=== PATIENT | female | born 1995 | race Two or more races ===

== ENCOUNTER 2020-06-05 11:41 | Outpatient (REF) | payer OTHER, SELFPAY ==
[2020-06-05 13:56] LABS: MANUAL DIFF FLAG NO
[2020-06-05 14:15] LABS: Basophils Absolute Auto 0.1 X10*3/uL (0.0-0.2); Basophils Percent Auto 0.7 % (0-2); Eosinophils Absolute Auto 0.2 X10*3/uL (0.0-0.4); Eosinophils Percent Auto 1.7 % (0-4); Hemoglobin 13.4 g/dl (12.0-16.0); Imm Gran Abs Auto 0.04 X10*3/uL (0.00-0.03); Imm Gran Pct Auto 0.3 % (0.0-0.4); Lymphocytes Percent Auto 35.1 % (20-40); Mean Corpuscular HGB Conc 32.7 g/dl (31.0-35.0); Mean Corpuscular Hemoglobin 28.2 pg (27.0-33.0); Mean Corpuscular Volume 86.3 fL (80-98); Mean Platelet Volume 12.5 fL (9.4-12.3); Monocytes Percent Auto 8.7 % (2-11); Neutrophils Absolute Auto 6.1 X10*3/uL (2.0-8.3); Neutrophils Percent Auto 53.5 % (45-73); Platelet Count 294 X10*3/uL (160-400); Red Blood Count 4.75 X10*6/uL (4.20-5.50); Red Cell Distribution Width 13.9 % (11.0-16.0); White Blood Count 11.4 X10*3/uL (4.8-10.8)
[2020-06-05 14:53] LABS: Cholesterol 146 mg/dL; Glucose Fasting 76 mg/dL (60-99); HDL Cholesterol 56 mg/dL; LDL Cholesterol Calculated 73 mg/dl; Triglycerides 88 mg/dL
== END 2020-06-05 11:42 | disposition home or self-care (01) ==
LOC: HO.HMGCLDS 11:41
PROVIDERS: PCP Internal Medicine; Visit Provider Internal Medicine
DX: Z00.01 Encounter for general adult medical examination with abnormal findings (principal); E66.9 Obesity, unspecified
CPT/HCPCS: 36415; 80061; 82947; 85025

== ENCOUNTER 2020-06-07 14:21 | Outpatient (REF) | payer OTHER, SELFPAY ==
[2020-06-08 11:42] LABS: C. trachomatis RNA TMA NOT DETECTED (NOT DETECTED); N. gonorrhoeae RNA TMA NOT DETECTED (NOT DETECTED)
== END 2020-06-07 14:22 | disposition home or self-care (01) ==
LOC: HO.LAB 14:21
PROVIDERS: PCP Internal Medicine; Visit Provider Advanced Practice Midwife
DX: Z01.419 Encounter for gynecological examination (general) (routine) without abnormal findings (principal); E66.9 Obesity, unspecified; Z68.33 Body mass index [BMI] 33.0-33.9, adult
CPT/HCPCS: 36415; 87491; 87591

== ENCOUNTER → 2021-01-17 09:15 | Outpatient (BNVA) | payer OTHER, SELFPAY | PROVIDERS: Visit Provider Advanced Practice Midwife | DX: Z32.01 Encounter for pregnancy test, result positive (principal); N92.6 Irregular menstruation, unspecified | CPT/HCPCS: 81025; 99212 ==

== ENCOUNTER 2021-01-21 10:29 | Outpatient (REF) | payer OTHER, SELFPAY ==
--- NOTE | ~2021-01-21 | US_ITS ---
EXAMINATION: US OBSTETRICAL ULTRASOUND CLINICAL INFORMATION: Irregular menstruation. Size and dates. LMP 11/16/2020. COMPARISON: None LMP: 11/16/2020. Gestational age by maternal dates is 9 weeks 3 days. Estimated date of delivery by maternal dates is 08/23/2021. TECHNIQUE: Ultrasound of the maternal pelvis is performed using transabdominal transducer. M-mode Doppler is also performed. FINDINGS: There is a single intrauterine gestational sac with visible embryo/fetus and cardiac activity. There is no significant subchorionic hemorrhage or hematoma. HR: 172 beats per minute. CRL (crown-rump length): 2.77 cm (9 weeks 5 days +/- 4 days). RAUL (estimated date of delivery): 08/21/2021 +/- 4 days. MATERNAL ADNEXA: The right maternal ovary measures 2.7 x 1.7 x 2.5 cm. Right adnexal cyst measuring 2.5 x 1.7 x 1.6 cm. The left maternal ovary measures 2.7 x 1.3 x 1.8 cm. There is no significant maternal adnexal mass. No maternal pelvic ascites. US/US OB <= 14 weeks fetus IMPRESSION: 1. Single intrauterine gestation with ultrasound gestational age of 9 weeks 5 days +/- 4 days. 2. Estimated date of delivery is 08/21/2021 +/- 4 days. 3. Simple right adnexal cyst measuring 2.5 cm.
== END 2021-01-21 10:30 | disposition home or self-care (01) ==
LOC: HO.HMGCX 10:29
PROVIDERS: PCP Internal Medicine; Visit Provider Advanced Practice Midwife
DX: N92.6 Irregular menstruation, unspecified (principal)
CPT/HCPCS: 76801

== ENCOUNTER → 2021-01-24 10:00 | Outpatient (BNVA) | payer OTHER, SELFPAY | PROVIDERS: PCP Internal Medicine; Visit Provider Advanced Practice Midwife | DX: Z34.01 Encounter for supervision of normal first pregnancy, first trimester (principal); Z3A.10 10 weeks gestation of pregnancy | CPT/HCPCS: 99212 ==

== ENCOUNTER 2021-02-06 08:11 | Outpatient (REF) | payer OTHER, SELFPAY ==
[2021-02-06 08:56] LABS: Hematocrit 37.9 % (37-47); Hemoglobin 12.6 g/dl (12.0-16.0); Mean Corpuscular HGB Conc 33.2 g/dl (31.0-35.0); Mean Corpuscular Hemoglobin 29.2 pg (27.0-33.0); Mean Corpuscular Volume 87.7 fL (80-98); Platelet Count 227 X10*3/uL (160-400); Red Blood Count 4.32 X10*6/uL (4.20-5.50); Red Cell Distribution Width 13.4 % (11.0-16.0); White Blood Count 13.1 X10*3/uL (4.8-10.8)
[2021-02-06 10:02] LABS: HBsAGNum1 0.18 S/CO (0.00-0.99); Hepatitis B Surface Antigen Negative (Negative)
[2021-02-06 10:33] LABS: HIV AB/AG Nonreactive (Nonreactive); HIV Num 1 0.14 S/CO (0.00-0.99); ~Hepatitis C Antibody Nonreactive (Nonreactive)
[2021-02-06 10:51] LABS: Glucose 1 Hour PP 50gm Dose 111 mg/dL (60-140)
[2021-02-07 03:28] LABS: Syphilis Screen Nonreactive (Nonreactive)
[2021-02-07 13:05] LABS: Rubella IgG Antibody 8.43 Index
== END 2021-02-06 08:12 | disposition home or self-care (01) ==
LOC: HO.LAB 08:11
PROVIDERS: PCP Internal Medicine; Visit Provider Advanced Practice Midwife
DX: Z34.90 Encounter for supervision of normal pregnancy, unspecified, unspecified trimester (principal)
CPT/HCPCS: 85027; 86762; 86780; 86787; 86803; 86850; 86900; 86901; 87340; 87389

== ENCOUNTER 2021-02-07 14:25 | Outpatient (REF) | payer OTHER, SELFPAY ==
--- NOTE | ~2021-02-07 | US_ITS ---
EXAMINATION: OBSTETRICAL ULTRASOUND, FIRST TRIMESTER HISTORY: A 34-year-old at the 12.1 weeks of gestation NT screening COMPARISON: 01/21/2021 TECHNIQUE: Real time transabdominal imaging with color and M-mode Doppler. FINDINGS: A single, live IUP CRL of 57.2 mm c/w 12.2wks is noted. Heart Rate: 160 beats per minute. Normal yolk sac seen. NT was 1.2.mm. NB Present The embryo appears sonographically wnl for this GA. Both maternal ovaries are seen and appear normal. GESTATIONAL AGE: 1. Established GA: 12.1 wks 2. GA from [facility]: 12.2 wks ESTIMATED DATE OF DELIVERY: 1. Established RAUL: 08/21/2021 2. RAUL from [facility]: 08/20/2021 US/US OB 1T nuc measure IMPRESSION: 1. A single live IUP 2. Size equals dates 3. NT of 1.2 mm MFM Consultation: I reviewed the ultrasound findings along with significance of NT measurement. The NT of less than 3mm is generally reassuring. However, the sensitivity for T21 detection is only 60%. I reviewed the availability of serum aneuploidy screening which includes cell-free DNA and placental protein based tests. I discussed the sensitivity, false-positive rate, and other limitations associated with each test. I also reviewed the availability of invasive diagnostic tests that are associated small but definite risk of miscarriage. We also reviewed the differences between screening tests and diagnostic tests. After our discussion, she opted for the First trimester screening that is based on cell-free DNA or non-invasive testing (NIPT). The result will be faxed to your office in approximately 7 days. A follow up at 18 weeks for survey has been scheduled. Thank you very much for this referral. Total time 30 minutes. The time spent was devoted to counseling the patient about the disease and diagnosis, coordinating care including reviewing her records, pertinent lab data and studies, as well as discussing diagnostic evaluation and workup, plan therapeutic interventions and future disposition of care. This includes any additional research needed to obtain further information in formulating the plan of care of this patient. This note was generated with a voice recognition program. Please excuse any errors which may have been overlooked during my review of this note. Sometimes these errors may affect the content or meaning of a given sentence.
[2021-02-07 15:47] LABS: Amphetamine Screen Urine Not Detected (Not Detect); Barbiturates, Urine Not Detected (Not Detect); Benzodiazepines Screen Urine Not Detected (Not Detect); Cannabinoid Screen Urine Not Detected (Not Detect); Cocaine Screen Urine Not Detected (Not Detect); Fentanyl, urine Not Detected (Not Detect); Opiate Screen Urine Not Detected (Not Detect); Phencyclidine Screen Urine Not Detected (Not Detect)
[2021-02-08 10:35] LABS: CT PCR NOT DETECTED (Not Detect.); NG PCR NOT DETECTED (Not Detect.)
== END 2021-02-07 14:26 | disposition home or self-care (01) ==
LOC: HO.US 14:25
PROVIDERS: PCP Internal Medicine; Visit Provider Advanced Practice Midwife
DX: Z34.91 Encounter for supervision of normal pregnancy, unspecified, first trimester (principal); Z11.3 Encounter for screening for infections with a predominantly sexual mode of transmission
CPT/HCPCS: 76813; 80307; 87086; 87147; 87491; 87591

== ENCOUNTER 2021-02-19 10:33 | Outpatient (REF) | payer OTHER, SELFPAY ==
[2021-02-19 14:15] LABS: CT PCR NOT DETECTED (Not Detect.); NG PCR NOT DETECTED (Not Detect.)
[2021-02-20 09:06] LABS: BV Int Neg Control Negative (Negative); BV Int Pos Control Positive (Positive)
== END 2021-02-19 10:34 | disposition home or self-care (01) ==
LOC: HO.LAB 10:33
PROVIDERS: PCP Internal Medicine; Visit Provider Advanced Practice Midwife
DX: O35.9XX0 Maternal care for (suspected) fetal abnormality and damage, unspecified, not applicable or unspecified (principal); O26.891 Other specified pregnancy related conditions, first trimester; N89.8 Other specified noninflammatory disorders of vagina; Z3A.13 13 weeks gestation of pregnancy
CPT/HCPCS: 81003; 87480; 87491; 87510; 87591; 87660; 99212

== ENCOUNTER → 2021-03-19 10:34 | Outpatient (BNVA) | payer OTHER, SELFPAY | PROVIDERS: PCP Internal Medicine; Visit Provider Advanced Practice Midwife | DX: Z34.02 Encounter for supervision of normal first pregnancy, second trimester (principal); Z3A.17 17 weeks gestation of pregnancy | CPT/HCPCS: 90686; 99212 ==

== ENCOUNTER 2021-04-04 10:50 | Outpatient (REF) | payer OTHER, SELFPAY ==
--- NOTE | ~2021-04-04 | US_ITS ---
EXAMINATION: US OBSTETRICAL CLINICAL INFORMATION: 26-year-old at 19.6 weeks of gestation High BMI Screening for anomaly COMPARISON: 02/07/2021 TECHNIQUE: Real-time transabdominal ultrasound was performed using C1-5 megahertz transducer. Transvaginal ultrasound was performed using an endovaginal probe to better visualize the cervical length. FINDINGS: A single, active, fetus is seen in breech presentation. The placenta is anterior without previa, and the amniotic fluid volume is wnl. MEASUREMENTS: 1. Biparietal Diameter: 4.6 cm; 19.5 wks 2. Occipital Frontal Diameter: 6.4 cm 3. Head Circumference: 17.9 cm; 20.3 wks 4. Abdominal Circumference: 15.9 cm; 21.1 wks 5. Femur Length: 3.4 cm; 20.5 wks 6. Humerus Length: 3.17 cm; 20.5 wks 7. Tibia Length: 2.84 cm; 20.3 wks 8. Ulna Length: 2.75 cm; 20.1 wks 9. Lateral ventricle: 0.48 cm 10. Cerebellum: 2.1 cm; 21.0 wks 11. Cisterna Magna: 0.62 cm 12. Nuchal Fold: 3.8 mm 13. Heart Rate: 146 beats per minute Rt ovary: normal Lt ovary: normal Cervical length 3.5 cm on T/V. GESTATIONAL AGE: 1. Established GA: 19.6 wks 2. GA [facility]: 20.4 wks ESTIMATED DATE OF DELIVERY: 1. Established RAUL: 08/23/2021 2. [facility]UL [facility]: 08/18/2021 ANATOMY: The visualized anatomy includes but not limited to: 1. Cranium: Normal 2. Intracranial anatomy: cavum septum pellucidi, lateral ventricles, choroid plexus, cerebellum, posterior fossa, third and fourth ventricles. 3. face: orbits, lip/palate, profile, nasal bone 4. Heart: four-chamber view of the heart, ventricular septum, foramen ovale, pulmonary vein, left and right outflow tracts, three-vessel view, 3 vessel trachea view, aortic and ductal arches, situs.. 5. Diaphragm: Normal 6. Abdominal wall: Normal 7. Cord Insertion: Normal 8. Spine: Cervical, thoracic, lumbar, sacral. 9. Stomach: Normal size and shape 10. Right Kidney: Normal 11. Left Kidney: Normal 12. 3 vessel cord: Normal 13. Upper extremity: Open hands, fifth digit. 14. Lower extremity: Tibia, fibula, bilateral feet. 15. Bladder: Normal 16. Genitalia: Male, patient aware US/US OB transvaginal IMPRESSION: 1. Single, living, intrauterine with appropriate biometry. 2. Normal survey 3. Normal cervical length DISCUSSION: I reviewed today's ultrasound findings. We discussed the limitations of ultrasound in diagnosing aneuploidy and other congenital abnormalities. I reviewed the differences between screening test and diagnostic test. Amniocentesis was discussed and declined. She was informed that the baseline incidence of congenital abnormalities is approximately 3-5%. Not all these conditions are diagnosable in utero. RECOMMENDATIONS: 1. Follow-up when necessary. Thank you for allowing me to participate in her care. Total time 30 minutes. The time spent was devoted to counseling the patient about the disease and diagnosis, coordinating care including reviewing her records, pertinent lab data and studies, as well as discussing diagnostic evaluation and workup, plan therapeutic interventions and future disposition of care. This includes any additional research needed to obtain further information in formulating the plan of care of this patient. This note was generated with a voice recognition program. Please excuse any errors which may have been overlooked during my review of this note. Sometimes these errors may affect the content or meaning of a given sentence.
--- NOTE | ~2021-04-04 | US_ITS ---
EXAMINATION: US OBSTETRICAL CLINICAL INFORMATION: 26-year-old at 19.6 weeks of gestation High BMI Screening for anomaly COMPARISON: 02/07/2021 TECHNIQUE: Real-time transabdominal ultrasound was performed using C1-5 megahertz transducer. Transvaginal ultrasound was performed using an endovaginal probe to better visualize the cervical length. FINDINGS: A single, active, fetus is seen in breech presentation. The placenta is anterior without previa, and the amniotic fluid volume is wnl. MEASUREMENTS: 1. Biparietal Diameter: 4.6 cm; 19.5 wks 2. Occipital Frontal Diameter: 6.4 cm 3. Head Circumference: 17.9 cm; 20.3 wks 4. Abdominal Circumference: 15.9 cm; 21.1 wks 5. Femur Length: 3.4 cm; 20.5 wks 6. Humerus Length: 3.17 cm; 20.5 wks 7. Tibia Length: 2.84 cm; 20.3 wks 8. Ulna Length: 2.75 cm; 20.1 wks 9. Lateral ventricle: 0.48 cm 10. Cerebellum: 2.1 cm; 21.0 wks 11. Cisterna Magna: 0.62 cm 12. Nuchal Fold: 3.8 mm 13. Heart Rate: 146 beats per minute Rt ovary: normal Lt ovary: normal Cervical length 3.5 cm on T/V. GESTATIONAL AGE: 1. Established GA: 19.6 wks 2. GA from [facility]: 20.4 wks ESTIMATED DATE OF DELIVERY: 1. Established RAUL: 08/23/2021 2. RAUL from [facility]: 08/18/2021 ANATOMY: The visualized anatomy includes but not limited to: 1. Cranium: Normal 2. Intracranial anatomy: cavum septum pellucidi, lateral ventricles, choroid plexus, cerebellum, posterior fossa, third and fourth ventricles. 3. face: orbits, lip/palate, profile, nasal bone 4. Heart: four-chamber view of the heart, ventricular septum, foramen ovale, pulmonary vein, left and right outflow tracts, three-vessel view, 3 vessel trachea view, aortic and ductal arches, situs.. 5. Diaphragm: Normal 6. Abdominal wall: Normal 7. Cord Insertion: Normal 8. Spine: Cervical, thoracic, lumbar, sacral. 9. Stomach: Normal size and shape 10. Right Kidney: Normal 11. Left Kidney: Normal 12. 3 vessel cord: Normal 13. Upper extremity: Open hands, fifth digit. 14. Lower extremity: Tibia, fibula, bilateral feet. 15. Bladder: Normal 16. Genitalia: Male, patient aware US/US OB /maternal detail IMPRESSION: 1. Single, living, intrauterine with appropriate biometry. 2. Normal survey 3. Normal cervical length DISCUSSION: I reviewed today's ultrasound findings. We discussed the limitations of ultrasound in diagnosing aneuploidy and other congenital abnormalities. I reviewed the differences between screening test and diagnostic test. Amniocentesis was discussed and declined. She was informed that the baseline incidence of congenital abnormalities is approximately 3-5%. Not all these conditions are diagnosable in utero. RECOMMENDATIONS: 1. Follow-up when necessary. Thank you for allowing me to participate in her care. Total time 30 minutes. The time spent was devoted to counseling the patient about the disease and diagnosis, coordinating care including reviewing her records, pertinent lab data and studies, as well as discussing diagnostic evaluation and workup, plan therapeutic interventions and future disposition of care. This includes any additional research needed to obtain further information in formulating the plan of care of this patient. This note was generated with a voice recognition program. Please excuse any errors which may have been overlooked during my review of this note. Sometimes these errors may affect the content or meaning of a given sentence.
== END 2021-04-04 10:51 | disposition home or self-care (01) ==
LOC: HO.US 10:50
PROVIDERS: PCP Internal Medicine; Visit Provider Advanced Practice Midwife
DX: O35.9XX0 Maternal care for (suspected) fetal abnormality and damage, unspecified, not applicable or unspecified (principal); Z3A.00 Weeks of gestation of pregnancy not specified
CPT/HCPCS: 76811; 76817

== ENCOUNTER 2021-04-11 10:30 | Outpatient (REF) | payer OTHER, SELFPAY ==
[2021-04-12 13:22] LABS: Rubella IgG Antibody 6.51 Index
[2021-04-14 08:35] LABS: HBsAGNum1 0.24 S/CO (0.00-0.99); Hepatitis B Surface Antigen Negative (Negative)
[2021-04-14 09:43] LABS: TS Negative Control Passed; TS Panel A 0; TS Panel B 0; TS Positive Control Passed; TSpotTB Negative (Negative)
== END 2021-04-11 10:31 | disposition home or self-care (01) ==
LOC: HO.HMGCLDS 10:30
PROVIDERS: PCP Internal Medicine; Visit Provider Internal Medicine
DX: Z02.1 Encounter for pre-employment examination (principal)
CPT/HCPCS: 36415; 86481; 86735; 86762; 86765; 86787; 87340

== ENCOUNTER → 2021-04-17 10:21 | Outpatient (BNVA) | payer OTHER, SELFPAY | PROVIDERS: PCP Internal Medicine; Visit Provider Advanced Practice Midwife | DX: Z34.02 Encounter for supervision of normal first pregnancy, second trimester (principal); Z3A.22 22 weeks gestation of pregnancy | CPT/HCPCS: 81003; 99212 ==

== ENCOUNTER → 2021-05-16 09:32 | Outpatient (BNVA) | payer OTHER, SELFPAY | PROVIDERS: PCP Internal Medicine; Visit Provider Advanced Practice Midwife | DX: O99.820 Streptococcus B carrier state complicating pregnancy (principal); Z3A.26 26 weeks gestation of pregnancy | CPT/HCPCS: 81003; 99212 ==

== ENCOUNTER 2021-06-03 09:02 | Outpatient (REF) | payer OTHER, SELFPAY ==
[2021-06-03 12:08] LABS: Hematocrit 34.5 % (37.0-47.0); Hemoglobin 11.3 g/dl (12.0-16.0); Mean Corpuscular HGB Conc 32.8 g/dl (31.0-35.0); Mean Corpuscular Hemoglobin 29.3 pg (27.0-33.0); Mean Corpuscular Volume 89.4 fL (80.0-98.0); Mean Platelet Volume 11.7 fL (9.4-12.3); Platelet Count 244 X10*3/uL (160-400); Red Blood Count 3.86 X10*6/uL (4.20-5.50); Red Cell Distribution Width 13.2 % (11.0-16.0); White Blood Count 12.6 X10*3/uL (4.8-10.8)
[2021-06-03 12:29] LABS: Glucose 1 Hour PP 50gm Dose 157 mg/dL (60-140)
[2021-06-04 03:46] LABS: Syphilis Screen Nonreactive (Nonreactive)
== END 2021-06-03 09:03 | disposition home or self-care (01) ==
LOC: HO.LAB 09:02
PROVIDERS: PCP Internal Medicine; Visit Provider Obstetrics & Gynecology
DX: Z34.93 Encounter for supervision of normal pregnancy, unspecified, third trimester (principal); Z23 Encounter for immunization; Z3A.28 28 weeks gestation of pregnancy
CPT/HCPCS: 36415; 85027; 86780; 90471; 99212

== ENCOUNTER 2021-06-07 07:42 | Outpatient (REF) | payer OTHER, SELFPAY ==
[2021-06-07 08:52] LABS: Glucose Fasting 107 mg/dL (60-99)
[2021-06-07 10:26] LABS: Glucose 1 Hour 228 mg/dL
[2021-06-07 12:17] LABS: Glucose 2 Hour 155 mg/dL
[2021-06-07 12:17] LABS: Glucose 3 Hour 123 mg/dL
== END 2021-06-07 07:43 | disposition home or self-care (01) ==
LOC: HO.LAB 07:42
PROVIDERS: PCP Internal Medicine; Visit Provider Obstetrics & Gynecology
DX: O99.810 Abnormal glucose complicating pregnancy (principal); Z3A.00 Weeks of gestation of pregnancy not specified
CPT/HCPCS: 36415; 82951

== ENCOUNTER → 2021-06-18 13:15 | Outpatient (BNVA) | payer OTHER, SELFPAY | PROVIDERS: PCP Internal Medicine; Visit Provider Advanced Practice Midwife | DX: O24.419 Gestational diabetes mellitus in pregnancy, unspecified control (principal); Z3A.30 30 weeks gestation of pregnancy | CPT/HCPCS: 81003; 99212 ==

== ENCOUNTER → 2021-06-19 10:55 | Outpatient (BNVA) | payer OTHER, SELFPAY | PROVIDERS: PCP Internal Medicine; Visit Provider Advanced Practice Midwife ==

== ENCOUNTER → 2021-06-24 09:31 | Outpatient (BNVA) | payer OTHER, SELFPAY | PROVIDERS: PCP Internal Medicine; Visit Provider Obstetrics & Gynecology | DX: O24.410 Gestational diabetes mellitus in pregnancy, diet controlled (principal); Z68.31 Body mass index [BMI] 31.0-31.9, adult | CPT/HCPCS: 59025; 99212 ==

== ENCOUNTER 2023-01-18 08:25 | Outpatient (AMB) | payer OTHER, SELFPAY ==
--- NOTE | 2023-01-18 08:33 | A.OFFPC_ITS ---
Vital Signs 01/18/23 08:43 Height 4 ft 11 in Weight 162 lb BMI 32.7 BP 100/76 Blood Pressure Location Lt brachial Position Sitting Pulse 76 Pulse Source Pulse Oximeter Pulse Oximetry (%) 99 Oxygen Delivery Method Room Air Intake Visit Reasons: Physical exam Intake Note: Pt is here today for her pE Is last menstrual period known: Yes Last menstrual period: 01/18/23 Allergies Sulfa (Sulfonamide Antibiotics) Adverse Reaction (Verified 01/18/23 09:02) Hives Medication List - Last Reconciled 01/19/23 by Vanda Bhardwaj MD ketoconazole 2% 1 appl topical BID 2 weeks norethindrone (contraceptive) 0.35 mg PO DAILY Tobacco use date assessed: 01/18/23 Dental Screening Dental Screen Date: 01/18/23 Did you have a dental visit in the last 12 months?: Yes Did you have a dental problem in the last 6 months where you did not have access to dental care?: No Was dental information given to patient?: Patient has dentist HPI Physical exam HPI Details 27-year-old lady here today for her phys ical exam. She has history of anemia , currently not taking any iron supplements, feels well, with no complaints of any chest pain, shortness of breath, headache or lightheadedness. She has history of gestational diabetes. She goes to [facility] for her routine Pap and pelvic exam, last done 11/30/2022 with normal findings. She is currently taking control pills. Complains of a mildly pruritic rash on left elbow which has been present now for the last 2 weeks has been applying [id number] antifungal cream which has not afforded any resolution of rash. [facility] Medical History (Updated 01/18/23 @ 09:28 by Vanda Bhardwaj MD) Tinea corporis Anemia Suspected anomaly, antepartum Myopia of left eye Obesity (BMI 30.0-34.9) Surgical History No pertinent past surgical history Family History Mother Fibromyalgia Diverticulitis Maternal Grandmother Diabetes mellitus Essential hypertension Social History Household Members: Significant Other Housing: Apartment Are you a primary rn care manager to a significant other at home: No Do you presently have visiting nurse or other home services: No Alcohol intake: never Patient Tobacco Use Status: Never used Tobacco Agree to transfusion: Yes service: No Current occupational status: employed Current occupation: Homecare Current occupational exposures/hazards: No Sexual orientation: Straight/Heterosexual Cognitive needs: No Hearing needs: No Vision needs: No Female Reproductive History Menstrual Age of Menarche: 15 Date of last menstrual period: 01/18/23 control method: pills Questionnaire PHQ-9 Over the last 2 weeks, how often have you been bothered by any of the following problems? 1. Little interest or pleasure in doing things: not at all 2. Feeling down, depressed, or hopeless: not at all 3. Trouble falling or staying asleep, or sleeping too much: not at all 4. Feeling tired or having little energy: not at all 5. Poor appetite or overeating: not at all 6. Feeling bad about yourself - or that you are a failure or have let yourself or your family down: not at all 7. Trouble concentrating on things, such as reading the newspaper or watching television: not at all 8. Moving or speaking so slowly that other people could have noticed. Or the opposite - being so fidgety or restless that you have been moving around a lot more than usual: not at all 9. Thoughts that you would be better off or of hurting yourself in some way: not at all Total score: 0 Depression Screening Interpretation: Negative 81329 - PHQ-9 Billing: Yes Source: Developed by Drs. Lamont Burnett, Ashley Beck, Levy Allen and colleagues, with an educational mora from [email or web address]. Thrive Questionnaire Date Thrive assessed: 01/18/23 I am a: Patient What is your living situation today?: I have a steady place to live Within the past 12 months, did the food you bought not last and you didn't have the money to get more?: Never true Within the past 12 months, did you worry whether your food would run out before you got money to buy more?: Never true Do you have trouble paying for medicines?: No Do you have trouble getting transportation to medical appointments?: No Do you have trouble paying your heating and electricity bill?: No Do you have trouble taking care of your child, family member or friend?: No Do you have trouble with day-to-day activities such as bathing, preparing meals, shopping, managing finances, etc.?: No Are you currently unemployed and looking for a job?: No Are you interested in more education?: No MITCHEL-7 AMB Questionnaire MITCHEL-7 Date MITCHEL - 7 assessed: 01/18/23 Feeling nervous, anxious, or on edge: 0 = Not at all Not being able to stop or control worryin = Not at all Worrying too much about different things: 0 = Not at all Trouble relaxin = Not at all Being so restless that it is hard to sit still: 0 = Not at all Becoming easily annoyed or irritable: 0 = Not at all Feeling afraid as if something awful might happen: 0 = Not at all Total MITCHEL-7 score (0-4 normal; 5-9 mild; 10-14 moderate; 15-21 severe): 0 Source: Developed by Drs. Lamont Burnett, Ashley Beck, Levy Allen and colleagues, with an educational mora from [email or web address]. MITCHEL-7 Assessment Billing MITCHEL-7 Assessment Tool: MITCHEL-7 Assessment 02863 Review of Systems Const Denies body aches, Denies fatigue, Denies fever(s), Denies headache(s) and Adam es weakness Eyes Reports blurry vision (Left eye), Denies change in vision, Denies eye discharge and Denies itchy eyes ENT Denies dizziness, Denies headache(s), Denies nasal congestion, Denies nasal discharge and Denies sore throat Card Denies chest pain, Denies lightheadedness, Denies palpitations and Denies dyspnea Resp Denies chest congestion, Denies cough, Denies dyspnea and Denies wheezing GI Denies abdominal pain, Denies change in bowel habits and Denies heartburn Denies urinary frequency, Denies dysuria and Denies urinary urgency Musc Denies back pain, Denies arthralgias, Denies joint swelling and Denies limited range of motion Skin/Breast Reports as per HPI Neuro Denies dizziness, Denies headache(s) and Denies weakness Psych Denies anxiety and Denies depression Endo Denies fatigue, Denies polydipsia, Denies polyuria and Denies palpitations Herbert/Lymph Denies easy bruising Aller/Immun Denies itchy eyes, Denies seasonal rhinorrhea and Denies wheezing Physical exam (Primary Care) Vital Signs: Last Vital Signs Pulse 76 01/18/23 08:43 BP 100/76 01/18/23 08:43 Pulse Ox 99 01/18/23 08:43 Oxygen Delivery Method Room Air 01/18/23 08:43 BMI result Body Mass Index 32.7 Tobacco/Smoking Status: Tobacco use Status Tobacco use date assessed 01/18/23 01/18/23 08:34 Patient Tobacco Use Status Never used Tobacco 01/18/23 08:34 PHQ-9: PHQ-9 Score PHQ-9: Total score 0 01/18/23 09:28 Depression Screening Interpretation: Negative Thrive Assessment: Date of Thrive Assessment Date Thrive assessed 01/18/23 01/18/23 08:55 Const General: no acute distress and alert Nutritional Appearance: obese Orientation/consciousness: patient oriented x3 HENMT Head: Yes normocephalic and Yes atraumatic Ears: external ears normal, TM's normal bilaterally and EAC's normal General nose exam: Normal external nose present and No nasal discharge present Face and sinus: Yes face symmetric Mouth: Normal oral and palatal mucosa present, oropharynx normal and moist mucous membranes Eyes General: appearance normal, both eyes and all related structures Eyelids: Yes eyelids normal Conjunctivae: conjunctivae normal Sclerae: sclerae normal Pupils: Equal, round and reactive pupils present EOM: EOMs intact bilaterally Neck Neck: Yes full ROM, Yes no lymphadenopathy and Yes supple Thyroid: Thyroid normal Chest Breast/axilla inspection: normal inspection of the breasts Breast/axilla palpation: normal palpation of the breasts Resp Effort & Inspection: normal respiratory effort and able to speak in complete sentences Auscultation: clear to auscultation bilaterally Cardio Rate: regular rate Rhythm: regular rhythm Heart sounds: S1 normal heart sound present and S2 normal heart sound present GI Palpation (GI): Soft to palpation, nontender, no guarding and no masses Auscultation: normal bowel sounds General: Yes no CVA tenderness Back/Spine/Pelvis Back: no CVA tenderness and No back tenderness Skin Other: Erythematous rash with central clearing over lateral aspect left elbow General skin exam: no rashes or lesions noted Neuro General: patient oriented x3, gait normal, moves all extremities, Normal light touch and pain sensation, no focal motor deficits and CN's II-XI intact bilaterally Cranial nerves: Yes Equal, round and reactive pupils present Cognition (Neuro): normal cognition Gait exam (Neuro): Normal gait present Motor exam (neuro): 5/5 motor strength present throughout Extrem General: Yes normal to inspection, Yes full ROM, Yes no joint enlargement, Yes no pedal edema and Yes normal gait Psych Appearance: grossly normal and well kempt Mental Status: mental status grossly normal Speech and movement: Normal speech and movement present Affect: normal affect Attitude: cooperative Thought process: Normal thought process present Thought content: Normal thought content present Insight: Good insight present (Psych) Judgement: Good judgement present (Psych) Assessment and Plan Assessment & Plan (1) Annual visit for general adult medical examination with abnormal findings: Code(s): Z00.01 - Encounter for general adult medical examination with abnormal findings (2) Gestational diabetes mellitus (GDM) affecting , antepartum: Code(s): O24.419 - Gestational diabetes mellitus in , unspecified control (3) Obesity (BMI 30.0-34.9): Code(s): E66.9 - Obesity, unspecified Plan: Recommended focusing on improving your health instead of dieting. : Eat Mediterranean diet, limit foods high in fat, sugar, and calories, eat slowly, pay attention to portion sizes, plan your meals ahead of time, start regular physical activity 150 minutes of moderate intensity exercise or 90 minutes/week of vigorous exercise and increase water intake. (4) Anemia: Code(s): D64.9 - Anemia, unspecified Qualifiers: Anemia type: unspecified type Qualified Code(s): D64.9 - Anemia, unspecified (5) Tinea corporis: Comment: left elbow Code(s): B35.4 - Tinea corporis Plan: Prescription sent for ketoconazole cream , apply sparingly to affected area twice a day for 2 weeks. Call if no improvement noted (6) Myopia of left eye: Code(s): H52.12 - Myopia, left eye Plan Will check appropriate labs. Recommended dental visit every 6 months and regular eye exams, at least every 2 years. Take adequate calcium in diet and vitamin-D 3 at 2000 IU per cap once a day, in addition to weight-bearing exercises to help maintain good muscle tone and weight control. Instructed to do self-breast exam, up-to-date with her cervical cancer screening. Reminded to get her flu shot and her COVID booster, up-to-date with Tdap Orders: Orders TSH reflex Free T4 01/18/23 E07.89 - Other specified disorders of thyroid, E66.9 - Obesity, unspecified Lipid Panel 01/18/23 D64.9 - Anemia, unspecified, E66.9 - Obesity, unspecified, O24.419 - Gestational diabetes mellitus in , unspecified control, Z00.01 - Encounter for general adult medical examination with abnormal findings Vitamin D 25-OH Total 01/18/23 D64.9 - Anemia, unspecified, E66.9 - Obesity, unspecified, O24.419 - Gestational diabetes mellitus in , unspecified control, Z00.01 - Encounter for general adult medical examination with abnormal findings Glucose Fasting 01/18/23 D64.9 - Anemia, unspecified, E66.9 - Obesity, unspecified, O24.419 - Gestational diabetes mellitus in , unspecified control, Z00.01 - Encounter for general adult medical examination with abnormal findings Complete Blood Count Auto Diff 01/18/23 D64.9 - Anemia, unspecified, E66.9 - Obesity, unspecified, O24.419 - Gestational diabetes mellitus in , unspecified control, Z00.01 - Encounter for general adult medical examination with abnormal findings Medications: New ketoconazole 2% 1 appl topical BID 2 weeks 30 grams 0RF B35.4 - Tinea corporis Coding Level of Care Code Est Pt Prev Care [id number]([id number]) Diagnoses Annual visit for general adult medical examination with abnormal findings Z00.01 Gestational diabetes mellitus (GDM) affecting , antepartum O24.419 Obesity (BMI 30.0-34.9) E66.9 Anemia, unspecified type D64.9 Anemia type: unspecified type Tinea corporis B35.4 Myopia of left eye H52.12 Additional Codes MITCHEL-7 Assessment Billing - MITCHEL-7 Assessment Tool: MITCHEL-7 Assessment [id number] ([id number])
[2023-01-18 08:43] VITALS: BP 100/76; PULSE 76; O2SAT 99; BMI 32.7
== END 2023-01-18 09:38 | disposition home or self-care (01) ==
PROVIDERS: PCP Internal Medicine; Visit Provider Internal Medicine
DX: Z00.01 Encounter for general adult medical examination with abnormal findings (principal); O24.419 Gestational diabetes mellitus in pregnancy, unspecified control; E66.9 Obesity, unspecified; Z68.32 Body mass index [BMI] 32.0-32.9, adult; D64.9 Anemia, unspecified; B35.4 Tinea corporis; H52.12 Myopia, left eye
CPT/HCPCS: 99395

== ENCOUNTER 2023-01-18 09:22 | Outpatient (REF) | payer OTHER, SELFPAY ==
[2023-01-18 11:33] LABS: Hematocrit 40.5 % (37.0-47.0); Hemoglobin 13.5 g/dl (12.0-16.0); Mean Corpuscular HGB Conc 33.3 g/dl (31.0-35.0); Mean Corpuscular Volume 86.9 fL (80.0-98.0); Mean Platelet Volume 12.1 fL (9.4-12.3); Platelet Count 283 X10*3/uL (160-400); Red Blood Count 4.66 X10*6/uL (4.20-5.50); Red Cell Distribution Width 13.3 % (11.0-16.0)
[2023-01-18 11:39] LABS: WBC ABN SCTR FOR CBC 1
[2023-01-18 11:54] LABS: Atypical Lymphs Percent Manual 1 % (0-6); Band Neutrophils Percent 0 % (3-5); Basophils Percent Manual 1 % (0-2); Eosinophils Percent Manual 2 % (0-4); Lymphocytes Percent Manual 28 % (20-40); Monocytes Percent Manual 6 % (2-11); Neutrophils Percent Manual 62 % (45-73)
[2023-01-18 11:55] LABS: Atypical Lymph Absolute Manual 0.1 x10*3/uL; Basophils Abs Manual 0.1 X10*3/uL (0.0-0.2); Eosinophils Absolute Manual 0.2 X10*3/uL (0.0-0.4); Lymphocytes Absolute Manual 3.3 X10*3/uL (1.2-4.9); Monocytes Absolute Manual 0.7 X10*3/uL (0.1-1.2); Neutrophils Absolute Manual 7.3 X10*3/uL (2.0-8.3); Platelet Estimate NORMAL (NORMAL); Platelet Morphology Comment NORMAL; RBC Morphology NORMAL; White Blood Count 11.7 X10*3/uL (4.8-10.8)
[2023-01-18 12:28] LABS: Cholesterol 162 mg/dL (<200); Glucose Fasting 100 mg/dL (60-99); HDL Cholesterol 56 mg/dL (>40); LDL Cholesterol Calculated 86 mg/dL (<100); Triglycerides 103 mg/dL (<150)
[2023-01-18 12:30] LABS: Vitamin D 25-OH Total 40.7 ng/mL (>30)
== END 2023-01-18 09:23 | disposition home or self-care (01) ==
LOC: HO.HMGCLDS 09:22
PROVIDERS: PCP Internal Medicine; Visit Provider Internal Medicine
DX: Z00.01 Encounter for general adult medical examination with abnormal findings (principal); E66.9 Obesity, unspecified; D64.9 Anemia, unspecified; E07.89 Other specified disorders of thyroid
CPT/HCPCS: 36415; 80061; 82306; 82947; 84443; 85007; 85027

== ENCOUNTER 2024-01-20 14:47 | Outpatient (AMB) | payer OTHER, SELFPAY ==
--- NOTE | 2024-01-20 15:31 | A.OFFPC_ITS ---
Vital Signs 01/20/24 15:47 Height 4 ft 11 in Weight 165 lb BMI 33.3 BP 112/82 Blood Pressure Location Lt brachial Position Sitting Pulse 96 Pulse Source Pulse Oximeter Pulse Oximetry (%) 98 Oxygen Delivery Method Room Air Intake Visit Reasons: Annual PE- needs PHQ9 Intake Note: Pt is here today for her PE: Last papsmear 11/30/22 Is last menstrual period known: Yes Last menstrual period: 12/31/23 Allergies Sulfa (Sulfonamide Antibiotics) Adverse Reaction (Verified 01/23/24 19:42) Hives Medication List - Last Reconciled 01/20/24 by Vanda Bhardwaj MD norethindrone (contraceptive) 0.35 mg PO DAILY triamcinolone acetonide 0.1% 1 appl topical DAILY Tobacco use date assessed: 01/20/24 Dental Screening Dental Screen Date: 01/20/24 Did you have a dental visit in the last 12 months?: Yes Did you have a dental problem in the last 6 months where you did not have access to dental care?: No Was dental information given to patient?: Patient has dentist HPI Annual PE- needs PHQ9 HPI Details 48-year-old lady with history of gestati onal diabetes, anemia, obesity, here today for physical exam. She is up-to-date with her cervical cancer screening and pelvic exam, last done in 2022 with benign results. Please of recurrent rash on her elbow, PFSH Medical History (Updated 01/20/24 @ 16:07 by Vanda Bhardwaj MD) History of gestational diabetes Tinea corporis Anemia Suspected anomaly, antepartum Myopia of left eye Obesity (BMI 30.0-34.9) Surgical History No pertinent past surgical history Family History Mother Fibromyalgia Diverticulitis Maternal Grandmother Diabetes mellitus Essential hypertension Social History Household Members: Significant Other Both parents involved: Yes Caregiver staying overnight: No Housing: Apartment Are you a primary care process manager to a significant other at home: No Do you presently have visiting nurse or other home services: No 75 years or older and lives alone: No Alcohol intake: never Patient Tobacco Use Status: Never used Tobacco e-Cigarette/Vaping Use: Never Used Agree to transfusion: Yes service: No Current occupational status: employed Current occupation: Homecare Current occupational exposures/hazards: No Sexual orientation: Straight/Heterosexual Cognitive needs: No Hearing needs: No Vision needs: No Female Reproductive History Menstrual Age of Menarche: 15 Date of last menstrual period: 12/31/23 control method: pills Date of last pap smear: 11/30/22 Other: Goes to [facility] Questionnaire PHQ-9 Over the last 2 weeks, how often have you been bothered by any of the following problems? 1. Little interest or pleasure in doing things: not at all 2. Feeling down, depressed, or hopeless: not at all 3. Trouble falling or staying asleep, or sleeping too much: not at all 4. Feeling tired or having little energy: not at all 5. Poor appetite or overeating: not at all 6. Feeling bad about yourself - or that you are a failure or have let yourself or your family down: not at all 7. Trouble concentrating on things, such as reading the newspaper or watching television: not at all 8. Moving or speaking so slowly that other people could have noticed. Or the opposite - being so fidgety or restless that you have been moving around a lot more than usual: not at all 9. Thoughts that you would be better off or of hurting yourself in some way: not at all Total score: 0 Depression Screening Interpretation: Negative Depression Screening Done: Yes 22295 - PHQ-9 Billing: Yes Source: Developed by Drs. Lamont Burnett, Ashley Beck, Levy Allen and colleagues, with an educational mora from [employer]. Thrive Questionnaire Date Thrive assessed: 01/20/24 I am a: Patient What is your living situation today?: I have a steady place to live Within the past 12 months, did the food you bought not last and you didn't have the money to get more?: Never true Within the past 12 months, did you worry whether your food would run out before you got money to buy more?: Never true Do you have trouble paying for medicines?: No Do you have trouble getting transportation to medical appointments?: No Do you have trouble paying your heating and electricity bill?: No Do you have trouble taking care of your child, family member or friend?: No Do you have trouble with day-to-day activities such as bathing, preparing meals, shopping, managing finances, etc.?: No Are you interested in more education?: No Please select the resources that you would like help with: None Currently or been in a relationship where the following occur: No concerns reported THRIVE Score: 0 AUDIT C Alcohol Use Questionnaire (AUDIT-C) 1. How often do you have a drink containing alcohol?: Never Total Score: 0 MITCHEL-7 AMB Questionnaire MITCHEL-7 Date MITCHEL - 7 assessed: 01/20/24 Feeling nervous, anxious, or on edge: 0 = Not at all Not being able to stop or control worryin = Not at all Worrying too much about different things: 0 = Not at all Trouble relaxin = Not at all Being so restless that it is hard to sit still: 0 = Not at all Becoming easily annoyed or irritable: 0 = Not at all Feeling afraid as if something awful might happen: 0 = Not at all Total MITCHEL-7 score (0-4 normal; 5-9 mild; 10-14 moderate; 15-21 severe): 0 Source: Developed by Drs. Lamont Burnett, Ashley Beck, Levy Allen and colleagues, with an educational mora from [employer]. MITCHEL-7 Assessment Billing MITCHEL-7 Assessment Tool: MITCHEL-7 Assessment 79428 Review of Systems Const Denies body aches, Denies fatigue, Denies fever(s), Denies headache(s) and Denies weakness Eyes Reports blurry vision (Left eye), Denies change in vision, Denies eye discharge and Denies itchy eyes ENT Denies dizziness, Denies headache(s), Denies nasal congestion, Denies nasal discharge and Denies sore throat Card Denies chest pain, Denies lightheadedness, Denies palpitations and Denies dyspnea Resp Denies chest congestion, Denies cough, Denies dyspnea and Denies wheezing GI Denies abdominal pain, Denies change in bowel habits and Denies heartburn Denies urinary frequency, Denies dysuria and Denies urinary urgency Musc Denies back pain, Denies arthralgias and Denies joint swelling Skin/Breast Reports as per HPI, Denies breast pain and Denies breast mass Neuro Denies dizziness, Denies headache(s) and Denies weakness Psych Denies anxiety and Denies depression Endo Denies fatigue, Denies polydipsia, Denies polyuria and Denies palpitations Herbert/Lymph Denies easy bruising Aller/Immun Denies itchy eyes, Denies seasonal rhinorrhea and Denies wheezing Physical exam (Primary Care) Vital Signs: Last Vital Signs Pulse 96 01/20/24 15:47 BP 112/82 01/20/24 15:47 Pulse Ox 98 01/20/24 15:47 Oxygen Delivery Method Room Air 01/20/24 15:47 BMI result Body Mass Index 33.3 Tobacco/Smoking Status: Tobacco use Status Tobacco use date assessed 01/20/24 01/20/24 15:33 Patient Tobacco Use Status Never used Tobacco 01/20/24 15:33 e-Cigarette/Vaping Use Never Used 01/20/24 15:33 PHQ-9: PHQ-9 Score PHQ-9: Total score 0 01/20/24 16:03 Depression Screening Interpretation: Negative Thrive Assessment: Date of Thrive Assessment Date Thrive assessed 01/20/24 01/20/24 15:33 Currently or been in a relationship where the following occur: No concerns reported Advance Care Planning discussion: Completed/Scanned Date of discussion: 01/20/24 Who was present: patient Forms completed: Health Care Proxy Time spent: 16-45 minutes Actual minutes spent: 16 Const General: no acute distress and alert Nutritional Appearance: obese Orientation/consciousness: patient oriented x3 HENMT Head: Yes normocephalic Ears: external ears normal, TM's normal bilaterally and EAC's normal General nose exam: Normal external nose present and No nasal discharge present Face and sinus: Yes face symmetric Mouth: Normal oral and palatal mucosa present, oropharynx normal and moist mucous membranes Eyes General: appearance normal, both eyes and all related structures Eyelids: Yes eyelids normal Conjunctivae: conjunctivae normal Sclerae: sclerae normal Pupils: Equal, round and reactive pupils present EOM: EOMs intact bilaterally Neck Neck: Yes full ROM, Yes no lymphadenopathy and Yes supple Thyroid: Thyroid normal Chest Breast/axilla inspection: normal inspection of the breasts Breast/axilla palpation: normal palpation of the breasts Resp Effort & Inspection: normal respiratory effort and able to speak in complete sen tences Auscultation: clear to auscultation bilaterally Cardio Rate: regular rate Rhythm: regular rhythm Heart sounds: S1 normal heart sound present and S2 normal heart sound present GI Palpation (GI): Soft to palpation, nontender, no guarding and no masses Auscultation: normal bowel sounds General: Yes no CVA tenderness Back/Spine/Pelvis Back: no CVA tenderness and No back tenderness Skin Other: Erythematous rash with central clearing over lateral aspect left elbow General skin exam: no rashes or lesions noted Neuro General: patient oriented x3, gait normal, moves all extremities, Normal light touch and pain sensation, no focal motor deficits and CN's II-XI intact bilaterally Cranial nerves: Yes Equal, round and reactive pupils present Cognition (Neuro): normal cognition Gait exam (Neuro): Normal gait present Motor exam (neuro): 5/5 motor strength present throughout Extrem General: Yes normal to inspection, Yes full ROM, Yes no joint enlargement, Yes no pedal edema and Yes normal gait Psych Appearance: grossly normal and well kempt Mental Status: mental status grossly normal Speech and movement: Normal speech and movement present Affect: normal affect Attitude: cooperative Thought process: Normal thought process present Thought content: Normal thought content present Assessment and Plan Assessment & Plan (1) Annual visit for general adult medical examination with abnormal findings: Code(s): Z00.01 - Encounter for general adult medical examination with abnormal findings Plan: Will check appropriate labs. Recommended dental visit every 6 months and regular eye exams, at least every 2 years. Take adequate calcium in diet and vitamin-D 3 at 2000 IU per cap once a day, in addition to weight-bearing exercises to help maintain good muscle tone and weight control. Instructed to do self-breast exam, up-to-date with her cervical cancer screening. Reminded to get her yearly flu shot and COVID booster (2) Obesity (BMI 30.0-34.9): Code(s): E66.9 - Obesity, unspecified Plan: Discussed need to increase activity and wt reduction. Recommended focusing on improving your health instead of dieting. : Eat Mediterranean diet, limit foods high in fat, sugar, and calories, eat slowly, pay attention to portion sizes, plan your meals ahead of time, start regular physical activity 150 minutes of moderate intensity exercise or 90 minutes/week of vigorous exercise and increase water intake. (3) History of gestational diabetes: Code(s): Z86.32 - Personal history of gestational diabetes Plan: Encouraged to exercise regularly, eat a healthy diet and to lose weight and prevent progression to diabetes mellitus (4) Encounter for counseling regarding advance directives: Code(s): Z71.89 - Other specified counseling Plan: Initiated the conversation about Advanced Directives. Advanced Directives help patients prepare for current and future decisions about their medical treatment and place of care. Discussed with patient that it is a process where a patients current condition and prognosis are reviewed, their wishes for information regarding their illness are elicited, and likely medical dilemmas are presented and options discussed. Healthcare proxy form completed today. The form can be amended as needed, reviewed yearly and make changes as needed (5) History of anemia: Code(s): Z86.2 - Personal history of diseases of the blood and blood-forming organs and certain disorders involving the immune mechanism Plan: CBC ordered (6) Rash: Code(s): R21 - Rash and other nonspecific skin eruption Plan: fluocinonide 0.1%1 appl topical BID 10 days 30 grams 0RF Orders: Orders Vitamin D 25-OH Total 01/20/24 E66.9 - Obesity, unspecified, Z00.01 - Encounter for general adult medical examination with abnormal findings, Z71.89 - Other specified counseling, Z86.2 - Personal history of diseases of the blood and blood-forming organs and certain disorders involving the immune mechanism, Z86.32 - Personal history of gestational diabetes Basic Metabolic Panel Fasting 01/20/24 E66.9 - Obesity, unspecified, Z00.01 - Encounter for general adult medical examination with abnormal findings, Z71.89 - Other specified counseling, Z86.2 - Personal history of diseases of the blood and blood-forming organs and certain disorders involving the immune mechanism, Z86.32 - Personal history of gestational diabetes Complete Blood Count Auto Diff 01/20/24 E66.9 - Obesity, unspecified, Z00.01 - Encounter for general adult medical examination with abnormal findings, Z71.89 - Other specified counseling, Z86.2 - Personal history of diseases of the blood and blood-forming organs and certain disorders involving the immune mechanism, Z86.32 - Personal history of gestational diabetes Lipid Panel 01/20/24 E66.9 - Obesity, unspecified, Z00.01 - Encounter for general adult medical examination with abnormal findings, Z71.89 - Other specified counseling, Z86.2 - Personal history of diseases of the blood and blood-forming organs and certain disorders involving the immune mechanism, Z86.32 - Personal history of gestational diabetes Medications: New fluocinonide 0.1% 1 appl topical BID 10 days 30 grams 0RF Coding Level of Care Code Est Pt Prev Care 18-39y(33021) Diagnoses Annual visit for general adult medical examination with abnormal findings Z00.01 Obesity (BMI 30.0-34.9) E66.9 History of gestational diabetes Z86.32 Encounter for counseling regarding advance directives Z71.89 History of anemia Z86.2 Rash R21 Additional Codes MITCHEL-7 Assessment Billing - MITCHEL-7 Assessment Tool: MITCHEL-7 Assessment 66389 ([id number]) Vital Signs *Quality* - Advance Care Planning discussion: Completed/Scanned ([id number]) Vital Signs *Quality* - Time spent: 16-45 minutes ([id number])
[2024-01-20 15:47] VITALS: BP 112/82; PULSE 96; O2SAT 98; BMI 33.3
== END 2024-01-20 16:25 | disposition home or self-care (01) ==
PROVIDERS: PCP Internal Medicine; Visit Provider Internal Medicine
DX: Z00.00 Encounter for general adult medical examination without abnormal findings (principal); E66.9 Obesity, unspecified; Z86.32 Personal history of gestational diabetes; Z68.33 Body mass index [BMI] 33.0-33.9, adult; Z71.89 Other specified counseling; Z86.2 Personal history of diseases of the blood and blood-forming organs and certain disorders involving the immune mechanism; R21 Rash and other nonspecific skin eruption

== ENCOUNTER → 2024-01-20 14:47 | Outpatient (BNVA) | payer OTHER, SELFPAY | PROVIDERS: PCP Internal Medicine; Visit Provider Internal Medicine | DX: Z00.01 Encounter for general adult medical examination with abnormal findings (principal); R21 Rash and other nonspecific skin eruption; E66.9 Obesity, unspecified; Z68.33 Body mass index [BMI] 33.0-33.9, adult; Z86.32 Personal history of gestational diabetes; Z71.89 Other specified counseling; Z86.2 Personal history of diseases of the blood and blood-forming organs and certain disorders involving the immune mechanism; Z71.3 Dietary counseling and surveillance | CPT/HCPCS: 96127; 99395; 99497 ==

== ENCOUNTER 2025-02-15 13:54 | Outpatient (AMB) | payer OTHER, SELFPAY ==
--- NOTE | 2025-02-15 14:35 | MHC.PC.OV ---
Vital Signs 02/15/25 14:39 Height 4 ft 11 in Weight 165 lb BMI 33.3 BP 110/70 Blood Pressure Location Lt brachial Respiration 16 Pulse 86 Pulse Source Pulse Oximeter Temp 98.3 F Temp Source Oral Pulse Oximetry (%) 98 Oxygen Delivery Method Room Air Intake Visit Reasons: Annual visit PHQ-9 needed., Physical exam Intake Note: Pt is here today for her PE Last papsmear 11/30/22 [employer] Required: No Is last menstrual period known: Yes Last menstrual period: 01/26/25 Allergies Sulfa (Sulfonamide Antibiotics) Adverse Reaction (Verified 02/15/25 14:47) Hives Medication List - Last Reconciled 02/15/25 by Vanda Bhardwaj MD fluocinonide 0.1% 1 appl topical BID 10 days norethindrone (contraceptive) 0.35 mg PO DAILY triamcinolone acetonide 0.1% 1 appl topical DAILY Tobacco use date assessed: 02/15/25 Dental Screening Dental Screen Date: 02/15/25 Did you have a dental visit in the last 12 months?: No Did you have a dental problem in the last 6 months where you did not have access to dental care?: No Was dental information given to patient?: Patient has dentist HPI Annual visit PHQ-9 needed. HPI Details 49-year-old lady with history of gestational diabetes, anemia, obesity, here today for physical exam. She is up-to-date with her cervical cancer screening and pelvic exam, last done in 2022 with benign results. Has been feeling well with no complaints at present time [facility], [facility] Medical History (Updated 02/15/25 @ 15:00 by Vanda Bhardwaj MD) Impaired fasting glucose Eczema History of gestational diabetes Tinea corporis Anemia Suspected anomaly, antepartum Myopia of left eye Obesity (BMI 30.0-34.9) Surgical History No pertinent past surgical history Family History Mother Fibromyalgia Diverticulitis Maternal Grandmother Diabetes mellitus Essential hypertension Social History Household Members: Significant Other Both parents involved: Yes Caregiver staying overnight: No Housing: Apartment Are you a primary prompt care rn to a significant other at home: No Do you presently have visiting nurse or other home services: No 75 years or older and lives alone: No Alcohol intake: never Patient Tobacco Use Status: Never used Tobacco e-Cigarette/Vaping Use: Never Used Agree to transfusion: Yes service: No Current occupational status: employed Current occupation: Homecare Current occupational exposures/hazards: No Sexual orientation: Straight/Heterosexual Cognitive needs: No Hearing needs: No Vision needs: No Female Reproductive History Menstrual Age of Menarche: 15 Date of last menstrual period: 01/26/25 control method: pills Questionnaire PHQ-9 Over the last 2 weeks, how often have you been bothered by any of the following problems? 1. Little interest or pleasure in doing things: not at all 2. Feeling down, depressed, or hopeless: not at all 3. Trouble falling or staying asleep, or sleeping too much: not at all 4. Feeling tired or having little energy: not at all 5. Poor appetite or overeating: not at all 6. Feeling bad about yourself - or that you are a failure or have let yourself or your family down: not at all 7. Trouble concentrating on things, such as reading the newspaper or watching television: not at all 8. Moving or speaking so slowly that other people could have noticed. Or the opposite - being so fidgety or restless that you have been moving around a lot more than usual: not at all 9. Thoughts that you would be better off or of hurting yourself in some way: not at all Total score: 0 Depression Screening Interpretation: Negative Depression Screening Done: Yes 17306 - PHQ-9 Billing: Yes Source: Developed by Drs. Lamont Burnett, Ashley Beck, Levy Allen and colleagues, with an educational mora from [employer]. Thrive Questionnaire Date Thrive assessed: 02/15/25 I am a: Patient What is your living situation today?: I have a steady place to live Within the past 12 months, did the food you bought not last and you didn't have the money to get more?: Never true Within the past 12 months, did you worry whether your food would run out before you got money to buy more?: Never true Do you have trouble paying for medicines?: No Do you have trouble getting transportation to medical appointments?: No Do you have trouble paying your heating and electricity bill?: No Do you have trouble taking care of your child, family member or friend?: No Do you have trouble with day-to-day activities such as bathing, preparing meals, shopping, managing finances, etc.?: No Are you currently unemployed and looking for a job?: No Are you interested in more education?: No Please select the resources that you would like help with: None Currently or been in a relationship where the following occur: No concerns reported THRIVE Score: 0 AUDIT C Alcohol Use Questionnaire (AUDIT-C) 1. How often do you have a drink containing alcohol?: Never Total Score: 0 Score Reviewed/Action Taken: Yes MITCHEL-7 AMB Questionnaire MITCHEL-7 Date MITCHEL - 7 assessed: 02/15/25 Feeling nervous, anxious, or on edge: 0 = Not at all Not being able to stop or control worryin = Not at all Worrying too much about different things: 0 = Not at all Trouble relaxin = Not at all Being so restless that it is hard to sit still: 0 = Not at all Becoming easily annoyed or irritable: 0 = Not at all Feeling afraid as if something awful might happen: 0 = Not at all Total MITCHEL-7 score (0-4 normal; 5-9 mild; 10-14 moderate; 15-21 severe): 0 Source: Developed by Drs. Lamont Burnett, Ashley Beck, Levy Allen and colleagues, with an educational mora from [employer]. MITCHEL-7 Assessment Billing MITCHEL-7 Assessment Tool: MITCHEL-7 Assessment 66385 Review of Systems Const Denies body aches, Denies fatigue, Denies fever(s), Denies headache(s) and Denies weakness Eyes Reports blurry vision (Left eye) and Denies change in vision ENT Denies dizziness, Denies headache(s), Denies nasal congestion and Denies nasal discharge Card Denies chest pain, Denies lightheadedness, Denies palpitations and Denies dyspnea Resp Denies chest congestion, Denies cough, Denies dyspnea and Denies wheezing GI Denies abdominal pain, Denies change in bowel habits and Denies heartburn Denies urinary frequency, Denies dysuria and Denies urinary urgency Musc Denies back pain, Denies arthralgias and Denies joint swelling Skin/Breast Denies breast pain and Denies breast mass Neuro Denies dizziness, Denies headache(s) and Denies weakness Psych Denies anxiety and Denies depression Endo Denies fatigue, Denies polydipsia, Denies polyuria and Denies palpitations Herbert/Lymph Denies easy bruising Aller/Immun Denies seasonal rhinorrhea and Denies wheezing Physical exam (Primary Care) Vital Signs: Last Vital Signs Temp 98.3 F 02/15/25 14:39 Pulse 86 02/15/25 14:39 Resp 16 02/15/25 14:39 BP 110/70 02/15/25 14:39 Pulse Ox 98 02/15/25 14:39 Oxygen Delivery Method Room Air 02/15/25 14:39 BMI result Body Mass Index 33.3 Tobacco/Smoking Status: Tobacco use Status Tobacco use date assessed 02/15/25 02/15/25 14:41 Patient Tobacco Use Status Never used Tobacco 02/15/25 14:38 e-Cigarette/Vaping Use Never Used 02/15/25 14:38 PHQ-9: PHQ-9 Score PHQ-9: Total score 0 02/15/25 14:50 Depression Screening Interpretation: Negative Thrive Assessment: Date of Thrive Assessment Date Thrive assessed 02/15/25 02/15/25 14:43 Currently or been in a relationship where the following occur: No concerns reported Const General: no acute distress and alert Nutritional Appearance: obese Orientation/consciousness: patient oriented x3 HENMT Head: Yes normocephalic Ears: external ears normal General nose exam: Normal external nose present and No nasal discharge present Face and sinus: Yes face symmetric Mouth: Normal oral and palatal mucosa present and moist mucous membranes Eyes General: appearance normal, both eyes and all related structures Eyelids: Yes eyelids normal Conjunctivae: conjunctivae normal Sclerae: sclerae normal Pupils: Equal, round and reactive pupils present EOM: EOMs intact bilaterally Neck Neck: Yes full ROM, Yes no lymphadenopathy and Yes supple Thyroid: Thyroid normal Chest Breast/axilla inspection: normal inspection of the breasts Breast/axilla palpation: normal palpation of the breasts Resp Effort & Inspection: normal respiratory effort and able to speak in complete sentences Auscultation: clear to auscultation bilaterally Cardio Rate: regular rate Rhythm: regular rhythm Heart sounds: S1 normal heart sound present and S2 normal heart sound present GI Palpation (GI): Soft to palpation, nontender, no guarding and no masses Auscultation: normal bowel sounds General: Yes no CVA tenderness Back/Spine/Pelvis Back: no CVA tenderness and No back tenderness Skin Other: Erythematous rash with central clearing over lateral aspect left elbow General skin exam: no rashes or lesions noted Neuro General: patient oriented x3, gait normal, moves all extremities, Normal light touch and pain sensation, no focal motor deficits and CN's II-XI intact bilaterally Cranial nerves: Yes Equal, round and reactive pupils present Cognition (Neuro): normal cognition Gait exam (Neuro): Normal gait present Motor exam (neuro): 5/5 motor strength present throughout Extrem General: Yes normal to inspection, Yes full ROM, Yes no joint enlargement, Yes no pedal edema and Yes normal gait Psych Appearance: grossly normal and well kempt Mental Status: mental status grossly normal Speech and movement: Normal speech and movement present Affect: normal affect Coding Level of Care Code Est Pt Prev Care 18-39y(20650) Diagnoses Annual visit for general adult medical examination with abnormal findings Z00.01 Obesity (BMI 30.0-34.9) E66.9 Eczema L30.9 Impaired fasting glucose R73.01 Encounter for screening for lipid disorder Z13.220 Additional Codes MITCHEL-7 Assessment Billing - MITCHEL-7 Assessment Tool: MITCHEL-7 Assessment 09230 ([id number]) PHQ-9 - 23560 - PHQ-9 Billing: Yes ([id number]) Assessment & Plan Assessment & Plan (1) Annual visit for general adult medical examination with abnormal findings: Code(s): Z00.01 - Encounter for general adult medical examination with abnormal findings Plan: Will check appropriate labs. Recommended dental visit every 6 months and regular eye exams, at least every 2 years. Take adequate calcium in diet and vitamin-D 3 at 2000 IU per cap once a day, in addition to weight-bearing exercises to help maintain good muscle tone and weight control. Instructed to do self-breast exam, and recommended to get yearly mammogram, starting at age 40. Up-to-date with her cervical cancer screening. Reminded to get her yearly flu vaccine, up-to-date with Tdap. (2) Obesity (BMI 30.0-34.9): Code(s): E66.9 - Obesity, unspecified Category: Medical Plan: Discussed need to increase activity and weight reduction. Recommended focusing on improving health instead of dieting. Mediterranean diet is a healthy diet that helps, limit food high in fat, sugar, and calories. Eat slowly, pay attention to portion sizes, plan your meals ahead of time, start regular physical activity, at least 150 minutes of moderate intensity exercise, or 90 minutes per week of vigorous exercise. Keeping a food diary, tracking what you eat and your physical activity can help assess what improvements you can make. (3) Eczema: Comment: Triamcinolone acetonide , Rx by Dr Leon Code(s): L30.9 - Dermatitis, unspecified Category: Medical Plan: Followed by dermatology, uses triamcinolone cream as needed (4) Impaired fasting glucose: Code(s): R73.01 - Impaired fasting glucose Category: Medical Plan: Your previous fasting blood sugars were elevated above 100 mg/dL. Impaired glucose metabolism increases the risk for developing diabetes mellitus type 2, as well as heart attack and stroke later on. Lifestyle changes that promotes weight loss, healthy eating habits, and regular exercise are important, and can prevent the progression to diabetes (5) Encounter for screening for lipid disorder: Code(s): Z13.220 - Encounter for screening for lipoid disorders Plan: Fasting lipid panel ordered today. Orders: Orders Alanine Aminotransferase 02/15/25 Z86.32 - Personal history of gestational diabetes, E66.9 - Obesity, unspecified, Z13.220 - Encounter for screening for lipoid disorders, R73.01 - Impaired fasting glucose Aspartate Amino Transferase 02/15/25 Z86.32 - Personal history of gestational diabetes, E66.9 - Obesity, unspecified, Z13.220 - Encounter for screening for lipoid disorders, R73.01 - Impaired fasting glucose, Z00.01 - Encounter for general adult medical examination with abnormal findings, H52.12 - Myopia, left eye, L30.9 - Dermatitis, unspecified Hemoglobin A1c 02/15/25 Z86.32 - Personal history of gestational diabetes, E66.9 - Obesity, unspecified, Z13.220 - Encounter for screening for lipoid disorders, R73.01 - Impaired fasting glucose, Z00.01 - Encounter for general adult medical examination with abnormal findings, H52.12 - Myopia, left eye, L30.9 - Dermatitis, unspecified Lipid Panel 02/15/25 Z86.32 - Personal history of gestational diabetes, E66.9 - Obesity, unspecified, Z13.220 - Encounter for screening for lipoid disorders, R73.01 - Impaired fasting glucose, Z00.01 - Encounter for general adult medical examination with abnormal findings, H52.12 - Myopia, left eye, L30.9 - Dermatitis, unspecified Basic Metabolic Panel Fasting 02/15/25 Z86.32 - Personal history of gestational diabetes, E66.9 - Obesity, unspecified, Z13.220 - Encounter for screening for lipoid disorders, R73.01 - Impaired fasting glucose, Z00.01 - Encounter for general adult medical examination with abnormal findings, H52.12 - Myopia, left eye, L30.9 - Dermatitis, unspecified Vitamin D 25-OH Total 02/15/25 Z86.32 - Personal history of gestational diabetes, E66.9 - Obesity, unspecified, Z13.220 - Encounter for screening for lipoid disorders, R73.01 - Impaired fasting glucose, Z00.01 - Encounter for general adult medical examination with abnormal findings, H52.12 - Myopia, left eye, L30.9 - Dermatitis, unspecified Complete Blood Count Auto Diff 02/15/25 Z86.32 - Personal history of gestational diabetes, E66.9 - Obesity, unspecified, Z13.220 - Encounter for screening for lipoid disorders, R73.01 - Impaired fasting glucose, Z00.01 - Encounter for general adult medical examination with abnormal findings, H52.12 - Myopia, left eye, L30.9 - Dermatitis, unspecified
[2025-02-15 14:39] VITALS: BP 110/70; PULSE 86; RESP 16; TEMP 36.8; O2SAT 98; BMI 33.3
== END 2025-02-15 15:05 | disposition home or self-care (01) ==
LOC: HO.HMCC 13:55
PROVIDERS: PCP Internal Medicine; Visit Provider Internal Medicine
DX: Z00.01 Encounter for general adult medical examination with abnormal findings (principal); E66.9 Obesity, unspecified; Z68.33 Body mass index [BMI] 33.0-33.9, adult; L30.9 Dermatitis, unspecified; R73.01 Impaired fasting glucose; Z13.220 Encounter for screening for lipoid disorders

== ENCOUNTER → 2025-02-15 13:54 | Outpatient (BNVA) | payer OTHER, SELFPAY | PROVIDERS: PCP Internal Medicine; Visit Provider Internal Medicine | DX: Z00.01 Encounter for general adult medical examination with abnormal findings (principal); E66.9 Obesity, unspecified; L30.9 Dermatitis, unspecified; R73.01 Impaired fasting glucose; H52.12 Myopia, left eye | CPT/HCPCS: 96127; 99395 ==

== ENCOUNTER 2025-03-08 10:26 | Outpatient (REF) | payer OTHER, SELFPAY ==
[2025-03-08 13:18] LABS: MANUAL DIFF FLAG NO
[2025-03-08 13:23] LABS: Hematocrit 41.0 % (37.0-47.0); Hemoglobin 13.5 g/dl (12.0-16.0); Imm Gran Abs Auto 0.09 X10*3/uL (0.00-0.03); Imm Gran Pct Auto 0.8 % (0.0-0.4); Lymphocytes Absolute Auto 3.4 X10*3/uL (1.2-4.9); Mean Corpuscular HGB Conc 32.9 g/dl (31.0-35.0); Mean Corpuscular Hemoglobin 27.9 pg (27.0-33.0); Mean Corpuscular Volume 84.7 fL (80.0-98.0); NRBC Abs Auto 0.000 X10*3/uL (0.0-0.012); NRBC Pct Auto 0.0 /100WBC (0.0-0.2); Platelet Count 336 X10*3/uL (160-400); Red Blood Count 4.84 X10*6/uL (4.20-5.50); White Blood Count 11.9 X10*3/uL (4.8-10.8)
[2025-03-08 13:40] LABS: Alanine Aminotransferase 10 U/L (0-31); Anion Gap 12 (12-20); Aspartate Amino Transferase 15 U/L (5-31); Blood Urea Nitrogen 11 mg/dL (9-16); Calcium 9.4 mg/dL (8.4-10.2); Carbon Dioxide 26 mmol/L (22-29); Chloride 104 mmol/L (96-108); Cholesterol 159 mg/dL (<200); Estimated Glomerular Filt Rate > 60; HDL Cholesterol 61 mg/dL (>40); Potassium 4.0 mmol/L (3.3-5.1); Sodium 138 mmol/L (135-145); Triglycerides 166 mg/dL (<150)
== END 2025-03-08 10:27 | disposition home or self-care (01) ==
LOC: HO.HMGCLDS 10:26
PROVIDERS: PCP Internal Medicine; Visit Provider Internal Medicine
DX: Z00.01 Encounter for general adult medical examination with abnormal findings (principal); Z13.220 Encounter for screening for lipoid disorders; R73.01 Impaired fasting glucose; H52.12 Myopia, left eye; L30.9 Dermatitis, unspecified; E66.9 Obesity, unspecified; Z86.32 Personal history of gestational diabetes
CPT/HCPCS: 36415; 80048; 80061; 82306; 83036; 84450; 84460; 85025